=== PATIENT | male | born 1945 | race Caucasian/White ===

== ENCOUNTER 2017-04-14 10:16 | Outpatient (CLI) | payer MEDICARE, OTHER ==
--- NOTE | 2017-04-14 11:43 | RAD ---
RIGHT KNEE 3 VIEWS: HISTORY: Right knee pain. FINDINGS: Moderate degenerative changes are present most prominent in the medial tibiofemoral and patellofemora l compartments. No fracture, dislocation, or bony destruction is seen. IMPRESSION: Right knee osteoarthritis. POS: [facility]
== END 2017-04-14 10:17 | disposition home or self-care (01) ==
LOC: SCSRAD 10:16
PROVIDERS: ATTEND Family Medicine
DX: M25.561 Pain in right knee (principal); M17.11 Unilateral primary osteoarthritis, right knee

== ENCOUNTER 2017-10-24 10:48 | Outpatient (CLI) | payer MEDICARE, OTHER ==
--- NOTE | 2017-10-24 14:41 | ULT ---
SCROTAL ULTRASOUND: INDICATION: Right inguinal pain. COMPARISON: None. TECHNIQUE: Shaikh scale, color Doppler, and duplex ultrasound images were obtained of the scrotum. FINDINGS: The right testicle measures 4.0 x 2.1 x 3.4 cm. There is a small right-sided hydrocele. No intrates ticular mass or torsion is evident. There is a small right epididymal head cyst measuring 7 and 3 mm in size, respectively. The left testicle measures 4.3 x 3.1 x 3.2 cm. No intratesticular mass or torsion is evident. There is slight prominence of the pampaniform plexus bilaterally, left greater than right. IMPRESSION: 1. No intratesticular vascular torsion demonstrated. 2. Small right hydrocele. 3. Small right epididymal head ct. POS: [facility]
== END 2017-10-24 10:49 | disposition home or self-care (01) ==
LOC: SCSULT 10:48
PROVIDERS: ATTEND Family Medicine
DX: R10.31 Right lower quadrant pain (principal); N43.3 Hydrocele, unspecified; N50.3 Cyst of epididymis
CPT/HCPCS: 76870; 93976

== ENCOUNTER 2019-01-11 12:02 | Outpatient (CLI) | payer MEDICARE, OTHER ==
--- NOTE | 2019-01-11 13:30 | ULT ---
ARTERIAL DOPPLER ULTRASOUND OF BILATERAL UPPER EXTREMITIES: DATE: 01/11/2019. HISTORY: Upper extremity cyanosis. TECHNIQUE: Multiplanar grayscale sonographic imaging of the arterial structures of bilateral upper extremities o btained with color flow and spectral analysis. FINDINGS: Bilateral common carotid arteries, subclavian arteries, axillary arteries, brachial arteries, radial arteries and ulnar arteries are patent and demonstrate appropriate arterial waveforms. VESSEL PEAK SYSTOLIC VELOCITY (CM/S) RIGHT UPPER EXTREMITY Common carotid artery 84 Proximal subclavian artery 77 Mid subclavian artery 54 Distal subclavian artery 103 Distal axillary artery 96 Proximal brachial artery 115 Mid brachial artery 118 Distal brachial artery 125 Radial artery 52 Ulnar artery 74 LEFT UPPER EXTREMITY Common carotid artery 161 Proximal subclavian artery 187 Mid subclavian artery 247 Distal subclavian artery 152 Distal axillary artery 92 Proximal brachial artery 101 Mid brachial artery 137 Distal brachial artery 119 Radial artery 108 Ulnar artery 114 IMPRESSION: Arterial structures of bilateral upper extremities are patent as described above. Mild elevated veloc ity within the left proximal common carotid artery may represent a moderate degree of stenosis (50-69%). Transcribed Date/Time: 01/11/2019 1:56 PM
== END 2019-01-11 12:03 | disposition home or self-care (01) ==
LOC: ULT 12:02
PROVIDERS: ATTEND Family Medicine
DX: R23.0 Cyanosis (principal)
CPT/HCPCS: 93923

== ENCOUNTER 2019-03-26 13:50 | Outpatient (CLI) | payer MEDICARE, OTHER ==
--- NOTE | 2019-03-26 16:32 | MRI ---
EXAM: LUMBAR SPINE MRI WITHOUT IV CONTRAST: 03/26/19 HISTORY: Lumbar spondylosis. Bilateral leg pain. FINDINGS: Multiplanar and multisequence MRI examination of the lumbar spine was performed. There is exaggerated red marrow redistribution appearance throughout the lumbar spine. No significan t acute edema. Conus medullaris region is unremarkable. T12-L1 disc level: No significant stenosis. L1-2 disc level: Fairly extensive disc protrusion changes in both the right and left paracentral hira ons with moderate to severe canal and lateral recess stenosis as well as bilateral moderate foraminal stenosis. L2-3 disc level: Diffuse disc osteophytosis with moderate bilateral recess stenosis and moderate to s evere bilateral foraminal stenosis. L3-4 disc level: Diffuse disc osteophytosis with a right paracentral area of disc extrusion extending caudally with right lateral recess stenosis. As well as bilateral foraminal stenosis. L4-5 disc level: Diffuse disc osteophytosis with mild central canal and moderate bilateral recess and moderate to severe foraminal stenosis. L5-S1 disc level: Moderate to severe central canal, lateral recess, and foraminal stenosis. IMPRESSION: Multilevel variable severity canal, lateral recess, and foraminal stenosis as above. Somewhat exagger ated red marrow redistribution appearance. POS: [facility]
== END 2019-03-26 13:51 | disposition home or self-care (01) ==
LOC: TBSIIMAG 13:50
PROVIDERS: ATTEND Orthopaedic Surgery
DX: M47.816 Spondylosis without myelopathy or radiculopathy, lumbar region (principal); M48.061 Spinal stenosis, lumbar region without neurogenic claudication; M48.07 Spinal stenosis, lumbosacral region
CPT/HCPCS: 72148